=== PATIENT | female | born 1990 | race Caucasian/White ===

== ENCOUNTER 2016-09-25 18:23 | Emergency (ER) | payer BC ==
[2016-09-25 20:25] LABS: HEMOGLOBIN 14.9 gm/dl (12.3-15.3); RED BLOOD COUNT 4.9 M/UL (4.00-5.10); WHITE BLOOD COUNT 13.3 K/UL (4.5-11.0)
[2016-09-25 22:06] LABS: BUN/CREATININE RATIO 30 (0-10)
== END 2016-09-25 22:28 | disposition home or self-care (01) ==
LOC: ER1 18:23
PROVIDERS: Physician Assistant Medical
DX: I89.1 Lymphangitis (principal); Z90.49 Acquired absence of other specified parts of digestive tract
CPT/HCPCS: 36415; 80053; 85025; 87040; 99283